=== PATIENT | male | born 1955 | race Hispanic/Latino ===

== ENCOUNTER 2021-07-13 18:40 | Emergency (ER) | payer OTHER, SELFPAY ==
--- NOTE | 2021-07-13 18:46 | ED.WOUNDLAC ---
HPI - Wound/Laceration General Chief Complaint: Wound/Laceration Stated Complaint: INSECT BITE Time Seen by Provider: 07/13/21 18:47 Source: patient and RN notes reviewed Mode of arrival: ambulatory Limitations: no limitations History of Present Illness HPI narrative: 65-year-old male presents to the [facility] with concerns to bee stings, one on the lateral aspect of the ankle and one on the medial aspect of the ankle right side. No treatment prior to arrival. Denies any chest pain or shortness of breath. No lip or tongue swelling Related Data Home Medications Medication Instructions Recorded Confirmed clonazepam 1 mg tablet See Rx Instructions .ROUTE .COMPLEX 05/09/21 Allergies Allergy/AdvReac Type Severity Reaction Status Date / Time No Known Allergies Allergy Mild Verified 01/22/21 13:14 Review of Systems Review of Systems: All systems reviewed & are unremarkable except as noted in HPI and below Constitutional: Constitutional: Reports no additional constitutional complaints Eyes: Eyes: Reports no additional eye complaints ENT: Reports system reviewed and no additional complaints, except as documented Cardiovascular: Cardiovascular: Reports no additional cardiovascular complaints Respiratory: Respiratory: Reports no additional respiratory complaints, Denies cough and Denies dyspnea Musculoskeletal: Musculoskeletal: Reports no additional musculoskeletal complaints Integumentary/Breasts: Skin/Breast: Reports as per HPI (redness and swelling lateral and medial aspect right ankle, Bee sting) Neurologic: Reports system reviewed and no additional complaints, except as documented Allergic/Immunologic: Allergic/Immunologic: Reports as per HPI, Denies lip swelling, Denies throat swelling, Denies tongue swelling and Denies wheezing PMFSH Past Medical History Medical History Anxiety Arthritis Depression HLD (hyperlipidemia) HTN (hypertension) Kidney disease Screening PSA (prostate specific antigen) Vertigo Surgical History Surgical History History of appendectomy 1961 History of elbow surgery 2010 History of hand surgery 2010 History of knee surgery 2014 Family History Family History Father Family history of primary malignant neoplasm of liver, Onset Age: 71 Other Arthritis Depression Diabetes mellitus Hypertension Social History Social History Social History: Patient drinks 6 diet sodas per day. Patient does not exercise. Smoking status: Never smoker Second hand tobacco smoke exposure: No Alcohol intake: current Drinks per week: 15 Alcohol use details: Patient drinks twice weekly Substance use: never Substance use type: does not use Additional living arrangements comments: Gender identity (if verbalized by the patient): Male Comments At the time of my signature, I reviewed and agree with the nursing past medical, surgical, social, and family history. There is no relevant family history pertinent to the patient complaint. Exam Const: General: healthy appearing, no acute distress and alert Nutritional Appearance: well nourished Orientation/consciousness: patient oriented x3 Limitations: no limitations HENMT: Head: normal to inspection Eyes: Conjunctivae: conjunctivae normal Pupils: Equal, round and reactive pupils present Neck: Neck: normal visual inspection, no lymphadenopathy and no meningeal signs Chest: Chest palpation & inspection: normal inspection of the chest Resp: Effort & Inspection: normal respiratory effort and no use of accessory muscles Auscultation: clear to auscultation bilaterally, no crackles, no rales, no rhonchi and no wheezes Cardio: Rate: regular rate Rhythm: regular rhythm Skin: General skin exa
[2021-07-13 18:47] VITALS: BP 144/77; PULSE 89; RESP 16; TEMP 35.9; O2SAT 100
== END 2021-07-13 18:58 | disposition home or self-care (01) ==
PROVIDERS: Emergency Provider Nurse Practitioner; PCP Emergency Medicine
DX: T63.441A Toxic effect of venom of bees, accidental (unintentional), initial encounter (principal); F32.9 Major depressive disorder, single episode, unspecified; E78.5 Hyperlipidemia, unspecified; I10 Essential (primary) hypertension
CPT/HCPCS: 99213; G0463

== ENCOUNTER 2022-06-22 11:50 | Emergency (ER) | payer OTHER, SELFPAY ==
[2022-06-22 12:31] VITALS: BP 132/84; PULSE 76; RESP 16; TEMP 36.4; O2SAT 99
== END 2022-06-22 13:13 | disposition left against medical advice (07) ==
PROVIDERS: Emergency Provider Internal Medicine Hematology & Oncology
DX: Z53.21 Procedure and treatment not carried out due to patient leaving prior to being seen by health care provider (principal)
CPT/HCPCS: 99199

== ENCOUNTER 2023-02-23 12:32 | Emergency (ER) | payer OTHER, SELFPAY ==
--- NOTE | ~2023-02-23 | XR_ITS ---
EXAMINATION: XR finger 5th LT min 2V DATE: 02/23/2023 13:10 INDICATION: Left hand fifth digit laceration. TECHNIQUE: 3 views of left hand fifth digit were obtained. COMPARISON: None. FINDINGS: There is a comminuted fracture of tuft of fifth distal phalanx. The main distal fracture fr agment demonstrates 22 degrees palmar angulation and 1 mm radial displacement. There is mild osteoart hritis of proximal interphalangeal joint and moderate osteoarthritis of distal interphalangeal joint. IMPRESSION: 1. Comminuted fracture of tuft of fifth distal phalanx. Reviewed, dictated and finalized at location A.
[2023-02-23 12:47] VITALS: BP 141/65; PULSE 86; RESP 18; TEMP 36.6; O2SAT 96
[2023-02-23] MEDS: TETANUS,DIPHTHERIA,AC PERTUSSIS ADULT (0.5 ML) BOOSTRIX IM (13:39)
--- NOTE | 2023-02-23 13:44 | ED.WOUNDLAC ---
HPI - Wound/Laceration General Chief Complaint: Wound/Laceration Stated Complaint: left fifth finger lac Time Seen by Provider: 02/23/23 13:29 Source: patient Mode of arrival: ambulatory Limitations: no limitations History of Present Illness HPI narrative: Patient is a 67 y/o male who presents to the ED with c/o L 5th digit laceration. 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 He cut his distal left 5th finger through the finger nail. No other injuries. Patient unsure of last tetanus shot. Denies numbness/tingling. Related Data Allergies Allergy/AdvReac Type Severity Reaction Status Date / Time No Known Allergies Allergy Mild Verified 02/18/23 13:43 Review of Systems Review of Systems: CONSTITUTIONAL: Denies fever, chills, or sweats. SKIN: See HPI. MUSCULOSKELETAL: See HPI. NEUROLOGIC: Denies tingling, numbness, or weakness. All systems reviewed & are unremarkable except as noted in HPI and below PMFSH Past Medical History Medical History Anxiety Arthritis Depression HLD (hyperlipidemia) HTN (hypertension) Kidney disease Screening PSA (prostate specific antigen) Vertigo Surgical History Surgical History History of appendectomy 1961 History of elbow surgery 2010 History of hand surgery 2010 History of knee surgery 2014 Family History Family History Father Family history of primary malignant neoplasm of liver, Onset Age: 71 Other Arthritis Depression Diabetes mellitus Hypertension Social History Social History Social History: Patient drinks 6 diet sodas per day. Patient does not exercise. Smoking status: Never smoker Second hand tobacco smoke exposure: No Alcohol intake: current Drinks per week: 15 Alcohol use details: Patient drinks twice weekly Substance use: never Substance use type: does not use Living arrangements: alone Additional living arrangements comments: Occupation/Education: retired Gender identity (if verbalized by the patient): Male Sexual Orientation (if Verbalized by the Patient): Straight or Heterosexual Exam Narrative: GENERAL: Well appearing, well-nourished, non-toxic, in no acute distress. HEAD: Normocephalic, atraumatic. NECK: Supple. No adenopathy, no masses. RESPIRATORY: Airway patent, respirations nonlabored. CARDIOVASCULAR: Regular rate and rhythm without murmurs, rubs, or gallops. Radial pulses 2+ and equal bilaterally. MUSCULOSKELETAL: Moves all extremities. Strength/ROM intact. SKIN: Warm, dry, normal color. No rashes. Approx 1cm laceration on dorsal surface of L 5th digit, extending obliquely through proximal nail plate, involving small portion of skin on either side of nail. Mild active bleeding. Small portion of most proximal nail plate intact - germinal matrix, proximal nail fold, and eponychium intact. Sensation intact. NEURO: A&O X3. Speech clear. Cranial nerves II-XII grossly intact. Steady gait. No ataxic movements. PSYCHIATRIC: Appropriate mood and affect. Normal interaction. Course Vital Signs Vital signs: Vital Signs Temperature 97.9 F 02/23/23 12:47 Pulse Rate 86 02/23/23 12:47 Respiratory Rate 18 02/23/23 12:47 Blood Pressure 141/65 H 02/23/23 12:47 Pulse Oximetry 96 02/23/23 12:47 Oxygen Delivery Room Air 02/23/23 12:47 Temperature 97.9 F 02/23/23 12:47 Pulse Rate 86 02/23/23 12:47 Respiratory Rate 18 02/23/23 12:47 Blood Pressure 141/65 H 02/23/23 12:47 Pulse Oximetry 96 02/23/23 12:47 Oxygen Delivery Room Air 02/23/23 12:47 Procedures Laceration Laceration 1: Date: 02/23/23 Time: 14:20 Site: hand (L 5th digit)
[2023-02-23] MEDS: ceFAZolin SODIUM 1 GM VIAL IM (14:22)
== END 2023-02-23 15:29 | disposition home or self-care (01) ==
PROVIDERS: Emergency Provider Physician Assistant; PCP Emergency Medicine
DX: S62.637A Displaced fracture of distal phalanx of left little finger, initial encounter for closed fracture (principal); S61.217A Laceration without foreign body of left little finger without damage to nail, initial encounter; I10 Essential (primary) hypertension; E78.5 Hyperlipidemia, unspecified; Z23 Encounter for immunization; W28.XXXA Contact with powered lawn mower, initial encounter; Y92.007 Garden or yard of unspecified non-institutional (private) residence as the place of occurrence of the external cause
CPT/HCPCS: 12001; 29130; 73140; 90471; 90715; 96372; 99284; J0690

== ENCOUNTER 2023-12-16 14:39 | Emergency (ER) | payer OTHER, SELFPAY ==
[2023-12-16 14:42] VITALS: BP 158/84; PULSE 90; RESP 20; TEMP 36.4; O2SAT 100
--- NOTE | 2023-12-16 17:24 | PC.NURSE ---
pt up to desk for 4th time complaining about wait. arguing with staff about how pissing razor blades is more life threatening than all the other patients. ed procedure explained once again to patient.
--- NOTE | 2023-12-16 17:45 | PC.NURSE ---
pt called by RN for MSE. Pt left to go get something to eat.
--- NOTE | 2023-12-16 18:49 | ED.MALEGU ---
HPI - Male Genitourinary General Chief complaint: Urogenital-Male <Milagros Braga PA-C - Last Filed: 12/17/23 09:40> Stated complaint: blood in urine <Milagros Braga PA-C - Last Filed: 12/17/23 09:40> Time Seen by Provider: 12/16/23 18:49 <Milagros Braga PA-C - Last Filed: 12/17/23 09:40> Focused HPI: this is a 68-year-old male that presents to the emergency department for dysuria. Ongoing over the last couple of days. Reports associated hematuria. Denies fevers, abdominal pain, vomiting, or flank pain. GENERAL: Well-appearing, well-nourished, and in no acute distress. HEAD: Normocephalic, atraumatic. CHEST: Clear to auscultation. No respiratory distress. HEART: Regular rate and rhythm. GASTROINTESTINAL: Soft, nontender, nondistended. No CVA tenderness NEURO: Alert and oriented x3. Patient screened in triage and initial orders placed. Additional care and disposition to be based upon diagnostic testing and treatment. <Milagros Braga PA-C - Last Filed: 12/17/23 09:40> History of Present Illness HPI Narrative: Patient is a 68-year-old gentleman who presents emergency department with chief complaint of hematuria. The patient noticed over the last several days he has had a pink lemonade tinged urine that is little bit of stinging with urination patient denies flank pain denies abdominal pain patient reports that he reports has had no trauma reports no prior history of kidney stones. <Montana Hook MD - Last Filed: 12/16/23 20:47> Related Data Allergies/Adverse reactions: Allergies Allergy/AdvReac Type Severity Reaction Status Date / Time No Known Allergies Allergy Mild Verified 11/28/23 08:38 <Milagros Braga PA-C - Last Filed: 12/17/23 09:40> Review of Systems Review of Systems: A 10 system review of systems was completed on the patient and is negative except for what is stated in the HPI. Nursing and ancillary documentation was reviewed. <Montana Hook MD - Last Filed: 12/16/23 20:47> PMFSH Past Medical History Medical History: Medical History Anxiety Arthritis Depression HLD (hyperlipidemia) HTN (hypertension) Kidney disease Screening PSA (prostate specific antigen) Vertigo <Milagros Braga PA-C - Last Filed: 12/17/23 09:40> Surgical History Surgical History: Surgical History History of appendectomy 1961 History of elbow surgery 2010 History of hand surgery 2010 History of knee surgery 2014 <Milagros Braga PA-C - Last Filed: 12/17/23 09:40> Family History Family History: Family History Father Family history of primary malignant neoplasm of liver, Onset Age: 71 Other Arthritis Depression Diabetes mellitus Hypertension <Milagros Braga PA-C - Last Filed: 12/17/23 09:40> Social History Social History: Social History Social History: Patient drinks 6 diet sodas per day. Patient does not exercise. Smoking status: Never smoker Second hand tobacco smoke exposure: No Alcohol intake: current Drinks per week: 15 Alcohol use details: Patient drinks twice weekly Substance use: never Substance use type: does not use Lack of Transportation: No Lack of Food: Never True Current Housing: I Have Housing Concerned About Future Housing: No Difficulty Paying Gas/Electric Bills: No Difficulty Paying for Meds: No Currently Unemployed: No Education: High School Diploma/GED Difficulty w/ Childcare or Family Care: No Living arrangements: alone Additional living arrangements comments: Occupation/Education: retired Gender identity (if verbalized by the patient): Male Sexual Orientation (if Verbalized by the
[2023-12-16 19:01] LABS: Basophils Percent Auto 0.5 % (0.2-1.2); Eosinophils Absolute Auto 0.3 K/mm3 (0-0.3); Eosinophils Percent Auto 3.4 % (0-4.4); Hematocrit 37.4 % (42.0-52.0); Hemoglobin 12.6 g/dL (14.0-18.0); Immature Granulocyte Absolute 0.02 K/mm3 (0.00-0.031); Immature Granulocyte Percent A 0.2 % (0-0.5); Lymphocytes Absolute Auto 1.75 K/mm3 (0.9-3.2); Lymphocytes Percent Auto 21.1 % (18.3-44.2); Mean Corpuscular HGB Conc 33.7 g/dl (32-36); Mean Corpuscular Hemoglobin 31.5 pg (26-34); Mean Corpuscular Volume 93.5 fl (80-100); Mean Platelet Volume 8.5 fl (7.4-10.4); Monocytes Absolute Auto 0.5 K/mm3 (0.1-0.6); Monocytes Percent Auto 5.8 % (2.6-8.5); Neutrophils Absolute Auto 5.7 K/mm3 (1.3-6.7); Platelet Count Result 317 k/mm3 (150-375); Red Cell Distribution Width 12.5 % (11.5-14.5); White Blood Count 8.3 K/mm3 (4.5-10.0)
[2023-12-16 19:12] LABS: Anion Gap 8 mmol/L (8-16); Blood Urea Nitrogen 17 mg/dL (9-20); Calcium 9.3 mg/dL (8.4-10.2); Carbon Dioxide 30 mmol/L (22-30); Chloride 102 mmol/L (98-107); Estimated CRCL calculation 61 ml/min; Estimated Glomerular Filt Rate > 60; Glucose 124 mg/dL (65-110); Potassium 3.7 mmol/L (3.4-5.0); Sodium 140 mmol/L (137-145)
--- NOTE | 2023-12-16 19:31 | PC.NURSE ---
Assumed care of pt. Report from dayshift. Pt resting quietly per chair. Denies any pain at this time. Awaiting urine results and erp eval.
[2023-12-16 19:55] LABS: Appearance Urine Clear (Clear); Bacteria Urine None Seen /hpf; Bilirubin Urine Negative (Negative); Blood Urine 3+ (Negative); Color Urine Yellow (Yellow); Glucose Urine UA Negative (Negative); Ketones Urine Negative (Negative); Leukocyte Esterase Ur Negative LEU/UL (Negative); Need Manual Microscopic Reviewed; Nitrate Urine Negative (Negative); Non Pathogenic Casts 0-2; Protein Urine Negative (Negative); RBC Urine 51-100 /hpf (0-2); Specific Grav Ur 1.004 (1.001-1.035); Squamous Epithelial Cell Urine None seen /hpf (Few); Urobilinogen Urine 0.2 mg/dL (<2.0); WBC Urine 0-5 /hpf; pH Urine 6.5 (5.0-9.0)
[2023-12-16 19:59] LABS: Add Urine Microscopic? YES
--- NOTE | 2023-12-16 20:58 | PC.NURSE ---
Pt declined having stone sent to pathology. States is ready to be discharged.
[2023-12-16 20:59] VITALS: BP 135/78; PULSE 68; RESP 14; O2SAT 99
== END 2023-12-16 21:00 | disposition home or self-care (01) ==
PROVIDERS: Physician Assistant; Emergency Provider Emergency Medicine; PCP Emergency Medicine
DX: R31.9 Hematuria, unspecified (principal); N20.1 Calculus of ureter; I10 Essential (primary) hypertension; E78.5 Hyperlipidemia, unspecified; N28.9 Disorder of kidney and ureter, unspecified; M19.90 Unspecified osteoarthritis, unspecified site
CPT/HCPCS: 36415; 80048; 81001; 85025; 99283

== ENCOUNTER 2023-12-22 09:21 | Outpatient (CLI) | payer OTHER, SELFPAY ==
--- NOTE | ~2023-12-22 | XR_ITS ---
EXAMINATION: XR shoulder RT min 2V DATE: 12/22/2023 09:43 INDICATION: Right shoulder pain. TECHNIQUE: 4 views of right shoulder were obtained. COMPARISON: None. FINDINGS: Bone alignment is normal. No acute fracture. There are old healed right rib fractures. Ther e is mild osteoarthritis of glenohumeral joint and severe osteoarthritis of acromioclavicular joint. IMPRESSION: 1. Polyarticular osteoarthritis. Reviewed, dictated and finalized at location A. HOUSE ATTENDANT
== END 2023-12-22 09:22 | disposition home or self-care (01) ==
LOC: ANHIMG 09:30
PROVIDERS: PCP Emergency Medicine; Visit Provider Emergency Medicine
DX: M25.511 Pain in right shoulder (principal); M19.011 Primary osteoarthritis, right shoulder
CPT/HCPCS: 73030

== ENCOUNTER → 2023-12-31 08:01 | Outpatient (CLI) | payer OTHER, SELFPAY ==
--- NOTE | ~2023-12-31 | MR_ITS ---
MRI of the right shoulder Technique: Axial proton-density fat-sat images, coronal proton density fat-sat and T2 fat-sat images, and sagittal T1-weighted and T2 fat-sat images were acquired. Clinical History: Pain Findings: There is severe AC joint degenerative change, with subacromial spur and marked line present change of the distal clavicle. There is fluid in the joint space and probable rupture of the inferio r acromioclavicular ligament. Coracoclavicular and coracohumeral ligaments are intact. Coracoacromial ligament poorly visualized. There is full-thickness tear involving nearly entire supraspinatus tendon, with fluid-filled gap matilda uring approximately 3.0 x 2.6 cm in extent. Infraspinatus tendon is intact, with moderate tendinosis and probable low-grade articular surface fraying. Subscapularis tendon is moderate tendinosis. There is probable rupture of the proximal long head biceps tendon with retraction beyond the [id number]. Bicipital groove appears empty. Intra-articular biceps tendon not visualized. There is probable focal superior labral tear. Inferior glenohumeral ligament is intact. There is moderate to large glenohumeral joint effusion with fluid passing through the abdomen and descending the subacromial/subdeltoid bursa. There is extensiv e synovitis in the bursa and the axillary pouch of the joint. There is fluid distention of the subsca pularis recess with synovitis. There is moderate to high-grade chondral malacia at the medial aspect of the humeral head. No muscle atrophy or edema evident. Impression: Complete, full-thickness tear of the entire supraspinatus tendon, as detailed above. Complete rupture of the proximal long head biceps tendon with retraction beyond the [id number]. Infraspinatus and subscapularis tendinosis. Severe AC joint degenerative change. High-grade chondromalacia the medial humeral head. Moderate to large joint effusion with prominent fluid distention of the subacromial/subdeltoid bursa and subscapularis recess, with extensive synovitis. Focal superior labral tear. Reviewed, dictated and finalized at location M. Y MACHINERY ASSEMBLER Impression: Complete, full-thickness tear of the entire supraspinatus tendon, as detailed a anthony. Complete rupture of the proximal long head biceps tendon with retraction beyond the [id number]. Infraspinatus and subscapularis tendinosis. Severe AC joint degenerative change. High-grade chondromalacia the medial humer al head. Moderate to large joint effusion with prominent fluid distention of the subacro mial/subdeltoid bursa and subscapularis recess, with extensive synovitis. Focal superior labral tear.
== END ==
PROVIDERS: PCP Emergency Medicine; Visit Provider Emergency Medicine
DX: M75.121 Complete rotator cuff tear or rupture of right shoulder, not specified as traumatic (principal); S43.431A Superior glenoid labrum lesion of right shoulder, initial encounter; S46.111A Strain of muscle, fascia and tendon of long head of biceps, right arm, initial encounter; M19.011 Primary osteoarthritis, right shoulder; M94.211 Chondromalacia, right shoulder; M67.813 Other specified disorders of tendon, right shoulder; M25.411 Effusion, right shoulder; X58.XXXA Exposure to other specified factors, initial encounter
CPT/HCPCS: 73221

== ENCOUNTER 2024-03-17 09:30 | Outpatient (RCR) | payer OTHER, SELFPAY ==
--- NOTE | 2024-03-03 15:38 | OPREHPOC ---
Outpatient Therapy Plan of Care This is a Multidisciplinary Plan of Care that may contain components documented by all disciplines (PT, OT, and ST.) PT Problem 1 PT Problem #1 Knowledge Deficit PT Goal 1 Goal Pt to be IND with issued HEP Target Visit 8 PT Problem 2 PT Problem #2 Pain PT Goal 1 Goal Pt to report pain no greater than 3/10 in the last week. Target Visit 8 PT Goal 2 Goal Pt to report no waking up at night d/t increased shoulder pain. Target Visit 8 PT Problem 3 PT Problem #3 Impaired Range of Motion PT Goal 1 Goal Pt to improve active shoulder flexion ROM to 130 deg Target Visit 8 PT Goal 2 Goal Pt to improve active shoulder abduction ROM to 100 deg. Target Visit 8 PT Problem 4 PT Problem #4 Impaired Strength PT Goal 1 Goal Pt to be able to lift 5lb overhead. Target Visit 8 PT Goal 2 Goal pt to improve R shoulder strength to grossly 4/5 Target Visit 8
--- NOTE | 2024-03-03 15:39 | PTOPEVAL1 ---
Assessment and note entered by Daiana Becerra, PT, DPT Evaluation Information Assessment Status Evaluation Diagnosis R shoulder - complete full thickness supraspinatus tear Onset 3 months Subjective Information He states he was removing upholstery ori from a chair, he reports he did not have any pain initially. He states he got a large bruise down his side. He states initially he was have a lot of pain and hurt to move his shoulder in any direction. He states the last month and a half his pain has been a lot more manageable. 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 Today he demonstrates strength and ROM deficits when compared to his L shoulder. He demonstrates decreased functional mobility compared to his baseline. Skilled therapy services are indicated to address the deficits noted above , to improve mobility, and promote a return to PLOF. Plan of Care Interventions Electrical Stimulation,Hot Pack/Cold Pack,Manual Therapy,Neuro Re-education,Patient/Caregiver Educati,Therapeutic Activities,Therapeutic Exercise PT Services Indicated Yes Treatment Frequency and 1x/wk for 6 visits Duration These treatments will address the objective and functional deficits as defined above. The patient will be advanced safely and appropriately in order for the patient to progress towards his/her prior level of function. Additional exercises will be introduced and as well as a comprehensive home exercise program upon discharge, if needed, ?to ensure carryover of functional gains achieved in the clinic. This treatment plan has been reviewed and agreement upon by the patient.
--- NOTE | 2024-03-30 08:49 | PTOPDC ---
Assessment and note entered by Rojas Garcia, PT Evaluation Information Assessment Status Discharge - Pt Not Present Diagnosis R shoulder - complete full thickness supraspinatus tear Onset 3 months Subjective Information Patient contacted clinic stating that he was doing very well and would like to be discharged from therapy at this time. He had no concerns moving forward. Assessment PT Clinical Summary Discharging patient per request at this time. Patient reports functional accomplishment and requested discharge at this time. Plan of Care PT Services Indicated D/C to HEP
== END 2024-03-30 10:20 | disposition home or self-care (01) ==
LOC: ANHGOSHPT 09:30
PROVIDERS: PCP Emergency Medicine; Visit Provider Orthopaedic Surgery
DX: S46.011D Strain of muscle(s) and tendon(s) of the rotator cuff of right shoulder, subsequent encounter (principal); S46.911D Strain of unspecified muscle, fascia and tendon at shoulder and upper arm level, right arm, subsequent encounter; M19.019 Primary osteoarthritis, unspecified shoulder
CPT/HCPCS: 97110; 97161; 97530

== ENCOUNTER 2025-02-07 11:14 | Outpatient (CLI) | payer OTHER, SELFPAY ==
--- NOTE | ~2025-02-07 | US_ITS ---
Left knee ULTRASOUND (Doppler ultrasound interrogation techniques used as needed for this exam.) Ordering provider: Juany Aguilar, FAMILY AND CONSUMER SCIENCE PROFESSOR History: . LEFT KNEE PAIN . Comparison: None. FINDINGS/impression: Complex septated fluid collection is seen in the left knee medial area measuring 5 x 4.9 x 2.1 cm. Al l fluid areas are connected with the largest seen inferior to the knee which is less complex and with less septations. Differential include hematoma versus synovial cyst with hemorrhagic changes. Infect ion is less likely but cannot be excluded. Clinical correlation advised. Reviewed, dictated and finalized at location A.
== END 2025-02-07 11:15 | disposition home or self-care (01) ==
LOC: GOSHIMG 11:14
PROVIDERS: PCP Emergency Medicine; Visit Provider Nurse Practitioner Family
DX: M25.562 Pain in left knee (principal)
CPT/HCPCS: 76882